=== PATIENT | female | born 1970 | race Caucasian/White ===

== ENCOUNTER 2016-12-18 09:57 | Day surgery (SDC) | payer BC ==
[2016-12-13 13:15] LABS: BASOPHILS 0.4 %; BASOPHILS ABSOLUTE 0.04 10/3/uL (0.0-0.16); EOSINOPHILS 3.3 %; EOSINOPHILS ABSOLUTE 0.35 10/3/uL (0.0-0.53); HEMOGLOBIN 12.7 g/dL (12.0-16.0); IMMATURE GRANULOCYTES 0.2 %; IMMATURE GRANULOCYTES ABSOLUTE 0.02 10/3/uL (0.0-0.11); LYMPHOCYTES 19.6 %; LYMPHOCYTES ABSOLUTE 2.07 10/3/uL (0.67-4.30); MEAN CORPUS HGB CONC 32.2 g/dL (32.0-36.0); MEAN CORPUSCULAR HEMOGLOB 29.8 pg (26.0-34.0); MEAN PLATELET VOLUME 10.3 fL (9.2-13.0); MONOCYTES 6.2 %; MONOCYTES ABSOLUTE 0.66 10/3/uL (0.21-1.20); NEUTROPHILS 70.3 %; NEUTROPHILS ABSOLUTE 7.43 10/3/uL (2.02-8.40); PLATELET COUNT 438 10/3/uL (150-400); RBC DISTRIBUTION WIDTH 13.8 % (12.0-16.0); RED CELL COUNT 4.26 10/6/uL (4.0-5.6); WHITE BLOOD CELLS 10.6 10/3/uL (4.5-10.5)
[2016-12-13 13:16] LABS: HEMATOCRIT 39.5 % (36.0-48.0); MANUAL DIFF NO %; MEAN CORPUSCULAR VOLUME 92.7 fL (80-100)
[2016-12-13 13:20] LABS: PARTIAL THROMBO TIME 25.3 SEC (22.5-37.2); PROTIME (NOT ORD) 13.4 SEC (12.0-14.5)
[2016-12-13 13:22] LABS: BUN (BLOOD UREA NITROGEN) 15 MG/DL (6-23); CALCIUM, SERUM 8.7 MG/DL (8.5-10.4); CHLORIDE, SERUM 106 MMOL/L (96-112); CO2 (CARBON DIOXIDE) 25 MMOL/L (24-34); CREATININE 0.72 MG/DL (0.55-1.02); GFR AFRICAN AMERICAN 119 ML/MIN (>=60); GFR NON AFRICAN AMERICAN 103 ML/MIN (>=60); GLUCOSE, SERUM 85 MG/DL (60-99); POTASSIUM, SERUM 4.1 MMOL/L (3.5-5.3); SODIUM, SERUM 142 MMOL/L (135-148)
--- NOTE | ~2016-12-18 | OP ---
Record Of Operation [facility] [address] [place]. [address] NAME: MARGE OWENS : 74 STATUS : [facility]#: [id number] AGE: 45 ADM/REG DATE : 12/18/16 MR#: [id number] REPORT SERV DATE: 12/19/16 DICTATED BY: ISRAEL STERLING DATE: 12/19/16 REPORT STATUS : Draft TRANSCRIBED BY: MODL DATE: 12/19/16 DATE OF PROCEDURE: 12/18/2016 PREOPERATIVE DIAGNOSIS: Follicular lesion of undetermined significance, approximately 5 cm, left thyroid lobe. POSTOPERATIVE DIAGNOSIS: Follicular neoplasm, left thyroid lobe. OPERATIVE PROCEDURE PERFORMED: Left thyroid lobectomy and nerve integrity monitoring. INDICATIONS AND SIGNIFICANT HISTORY: The patient is a 45-year-old female with a significant history of a 3 x 5 cm nodule in the left thyroid lobe in the setting of multinodular goiter. Fine-needle aspiration biopsy had been performed that demonstrated a follicular lesion of uncertain significance. The patient was felt to benefit from left thyroid lobectomy and possible total thyroidectomy and was scheduled for such. OPERATIVE PROCEDURE AND FINDINGS: After informed consent was obtained, the patient was brought to the operating room and placed on the operating table in the supine position at which point general endotracheal anesthesia was induced by the Anesthesia Service utilizing a NIM nerve monitoring tube. The NIM nerve monitor was set up to monitor the laryngeal musculature throughout the course of the case. The skin of the anterior neck was prepped and draped in a standard sterile fashion and injected with approximately 9 mL of 2% lidocaine, 1:200,000 epinephrine. A 15-blade scalpel was used to make a skin incision in the natural skin crease, and subplatysmal flaps were elevated superiorly and inferiorly. Strap muscles were divided in midline and retracted laterally. This exposed the thyroid isthmus. The left thyroid lobe was then dissected. The middle thyroid veins were divided with Harmonic scalpel. Superior and inferior pole vessels were divided with Harmonic scalpel. Any tissue that could possibly represent parathyroid tissue was preserved within the neck or reimplanted within the neck. The thyroid isthmus was divided adjacent to the right thyroid lobe, and a combination of sharp and blunt dissection was used to elevate the left thyroid lobe from its position within the neck. Specimen was sent to pathology where pathology confirmed follicular neoplasm. However, final pathology was pending further sectioning. At this point, the wound was inspected. No additional bleeding was noted. The wound was closed in multiple layers consisting of deep Vicryl suture followed by closure of the skin with Prolene and Steri-Strips. She was turned back towards Anesthesia, aroused from anesthesia, and taken to the postanesthesia care unit in satisfactory condition. COMPLICATIONS: None. ESTIMATED BLOOD LOSS: Less than 10 mL. IV FLUIDS: Per Anesthesia. DLA/MODL Record Of Operation [address] [place]. [address] NAME: MARGE OWENS : 74 STATUS : [facility] PAT#: [id number] AGE: 45 ADM/REG DATE : 12/18/16 MR#: [id number] REPORT SERV DATE: 12/19/16 DICTATED BY: ISRAEL STERLING DATE: 12/19/16 REPORT STATUS : Draft TRANSCRIBED BY: MODL DATE: 12/19/16 Israel Sterling M.D. / [id number] CC: Anel Rachel III, D.O.
[~2016-12-18 09:57] MED LIST: ALEVE220 MG PO; ASAB PO; COREG3 PO; CYMBALTA60 PO; EXCEDRIN EXTRA1 EACH PO; LIPITOR40 PO; MOTRIN IB200 MG PO; PLAVIX PO; SEASONIQUE PO; SINGULAIR1 PO; VENTOLIN HFA INH; ZYRTEC ALLGY10 MG PO; ZYRTEC-D ALG PO
== END 2016-12-18 18:05 | disposition home or self-care (01) ==
LOC: SDC 09:57
PROVIDERS: Otolaryngology
PROC: 0GTG0ZZ Resection of Left Thyroid Gland Lobe, Open Approach (ICD-10-PCS; principal; 2016-12-18 12:00)
DX: D34 Benign neoplasm of thyroid gland (principal); E04.2 Nontoxic multinodular goiter; E78.5 Hyperlipidemia, unspecified; I10 Essential (primary) hypertension; I25.2 Old myocardial infarction; J45.909 Unspecified asthma, uncomplicated; F32.9 Major depressive disorder, single episode, unspecified; Z98.890 Other specified postprocedural states; Z98.61 Coronary angioplasty status; Z83.3 Family history of diabetes mellitus; Z80.9 Family history of malignant neoplasm, unspecified; Z82.3 Family history of stroke; Z88.2 Allergy status to sulfonamides; Z79.82 Long term (current) use of aspirin; Z79.02 Long term (current) use of antithrombotics/antiplatelets; Z79.818 Long term (current) use of other agents affecting estrogen receptors and estrogen levels; Z79.1 Long term (current) use of non-steroidal anti-inflammatories (NSAID); Z79.899 Other long term (current) drug therapy
CPT/HCPCS: 36415; 80048; 84703; 85025; 85610; 85730; 88307; 88331; 93005; A9270-GY; J0690; J2250; J2405; J2710; J3010